=== PATIENT | male | born 1980 | race Caucasian/White ===

== ENCOUNTER 2017-10-20 19:41 | Emergency (ER) | payer MEDICAID ==
[~2017-10-20] VITALS: Ht 175.3 cm; Wt 53.3 kg
[~2017-10-20 19:41] MED LIST: HYDR-569 PO
[2017-10-20 19:47] VITALS: BP 139/91
[2017-10-20] MEDS ORDERED: BACI1PAC7 TP (20:39)
== END 2017-10-20 23:47 | disposition home or self-care (01) ==
LOC: ER 19:42
DX: S60.444A External constriction of right ring finger, initial encounter (principal); F11.10 Opioid abuse, uncomplicated; F17.200 Nicotine dependence, unspecified, uncomplicated; Z79.899 Other long term (current) drug therapy; X58.XXXA Exposure to other specified factors, initial encounter; Y93.89 Activity, other specified; Y92.89 Other specified places as the place of occurrence of the external cause; Y99.8 Other external cause status
CPT/HCPCS: 99283

== ENCOUNTER 2021-06-21 12:22 | Emergency (ER) | payer MEDICAID ==
[~2021-06-21] VITALS: Ht 172.7 cm; Wt 165.0 kg
[2021-06-21 12:22] VITALS: BP 128/89
[~2021-06-21 12:22] MED LIST changes: +HYDR-4383 PO; -HYDR-569 PO
--- NOTE | 2021-06-21 13:12 | NUR ---
Pt given and understands d/c instructions. Ambulatory with a steady gait.
== END 2021-06-21 13:12 | disposition home or self-care (01) ==
LOC: ER 12:23
DX: U07.1 COVID-19 (principal); R51.9 Headache, unspecified; F17.200 Nicotine dependence, unspecified, uncomplicated; Z79.899 Other long term (current) drug therapy
CPT/HCPCS: 36415; 99283; U0003; U0005

== ENCOUNTER 2021-07-29 14:42 | Emergency (ER) | payer MEDICAID ==
[~2021-07-29] VITALS: Ht 172.7 cm; Wt 76.0 kg
[2021-07-29 15:01] VITALS: BP 198/78
[2021-07-29] MEDS ORDERED: CHLO118M PO (16:45)
[2021-07-29] MEDS ORDERED: IBUP-1986 PO (16:45)
[2021-07-29] MEDS ORDERED: CYCL-394 PO (16:46)
[2021-07-29] MEDS ORDERED: PENI-88 PO (16:46)
== END 2021-07-29 16:54 | disposition home or self-care (01) ==
LOC: ER 14:43
DX: K02.9 Dental caries, unspecified (principal); M54.6 Pain in thoracic spine
CPT/HCPCS: 99283

== ENCOUNTER 2023-05-04 14:41 | Emergency (ER) | payer MEDICAID ==
[~2023-05-04] VITALS: Ht 172.7 cm; Wt 61.4 kg
[~2023-05-04 14:41] MED LIST changes: +CHLO118M PO; +IBUP-1986 PO
[2023-05-04 14:49] VITALS: BP 117/52; PULSE 60; RESP 16; TEMP 98; O2SAT 100
[2023-05-04 15:13] LABS: BASOPHILS % (AUTO) 0.9 % (0-1); EOSINOPHILS # (AUTO) 0.1 X10'3 (0-0.9); EOSINOPHILS % (AUTO) 2.3 % (0-6); HEMATOCRIT 38.9 % (42.0-52.0); HEMOGLOBIN 13.1 g/dl (14.0-17.9); LYMPHOCYTES # (AUTO) 1.8 X10'3 (1.1-4.8); LYMPHOCYTES % (AUTO) 41.3 % (21-51); MEAN CORPUSCULAR HEMOGLOBIN 28.9 PG (27.0-31.0); MEAN CORPUSCULAR HGB CONC 33.6 g/dL (33.0-36.5); MEAN PLATELET VOLUME 8.4 FL (7.4-10.4); MONOCYTES # (AUTO) 0.4 X10'3 (0-0.9); MONOCYTES % (AUTO) 9.3 % (2-12); NEUTROPHILS % (AUTO) 46.2 % (42-75); PLATELET COUNT 156 X10'3 (140-440); RED BLOOD COUNT 4.52 X10'6 (4.70-6.10); RED CELL DISTRIBUTION WIDTH 13.3 % (11.5-14.5); WHITE BLOOD COUNT 4.4 X10'3 (4.5-11.0)
== END 2023-05-04 15:21 | disposition home or self-care (01) ==
LOC: ER 14:41
DX: M25.521 Pain in right elbow (principal); F11.90 Opioid use, unspecified, uncomplicated; Z79.899 Other long term (current) drug therapy
CPT/HCPCS: 36415; 85025; 99283